=== PATIENT | male | born 1945 | race Caucasian/White ===

== ENCOUNTER 2018-09-05 15:16 | Emergency (ER) | payer MEDICARE ==
[~2018-09-05] VITALS: Ht 177.8 cm; Wt 93.4 kg
[~2018-09-05 15:16] MED LIST: LIDEX0.05% T; PREDNICOT20 MG PO
[2018-09-05] MEDS ORDERED: NAPROSYN500 MG PO (16:36)
== END 2018-09-05 16:39 | disposition home or self-care (01) ==
LOC: ED 15:16
DX: S20.222A Contusion of left back wall of thorax, initial encounter (principal); R03.0 Elevated blood-pressure reading, without diagnosis of hypertension; Z88.0 Allergy status to penicillin; W01.0XXA Fall on same level from slipping, tripping and stumbling without subsequent striking against object, initial encounter; Y93.89 Activity, other specified; Y92.89 Other specified places as the place of occurrence of the external cause; Y99.8 Other external cause status